=== PATIENT | male | born 1970 ===

== ENCOUNTER 2021-10-26 20:02 | Emergency (ER) | payer BC ==
[2021-10-26 21:58] LABS: HEMOGLOBIN 15.8 gm/dl (14.0-17.5); RED BLOOD COUNT 5.17 M/UL (4.20-5.50); WHITE BLOOD COUNT 13.9 K/UL (4.5-11.0)
== END 2021-10-27 06:24 | disposition home or self-care (01) ==
LOC: ER1 20:02
PROVIDERS: Physician Assistant
DX: K80.80 Other cholelithiasis without obstruction (principal); N13.2 Hydronephrosis with renal and ureteral calculous obstruction; I10 Essential (primary) hypertension
CPT/HCPCS: 80048; 81001; 85025; 96374; 96375; 99284; J2270; J2405